=== PATIENT | female | born 1960 | race Caucasian/White ===

== ENCOUNTER → 2018-02-08 | Outpatient (REF) | payer OTHER | LOC: ZZSENDIN 12:00 | PROVIDERS: ATTEND Physician Assistant | DX: L30.8 Other specified dermatitis (principal) | CPT/HCPCS: 88305; 88344 ==

== ENCOUNTER → 2018-09-13 | Outpatient (CLI) | payer OTHER ==
--- NOTE | 2018-09-13 15:27 | RADIOLOGY IMAGING REPORT ---
FACILITY: [facility] PATIENT NAME: Denisse Allison : 1960 MR: [id number] V: [id number] EXAM DATE: ORDERING PHYSICIAN: TINY HENDRICKSON TECHNOLOGIST: Location: [facility] [place] Patient: Denisse Allison : 1960 Visit/Account:[id number] Date of Sevice: 09/13/2018 Exam type: HIP RIGHT History: Pain in right hip, injury in May Comparison: None. Findings: Two views of the right hip demonstrate severe joint space. Narrowing along the superior aspect of th e right hip joint. There are subchondral cystic erosions seen along the superior aspect of the right femoral head and along the superior margin of the acetabulum. No evidence of acute fracture or disl ocation. IMPRESSION: 1. Extensive degenerative changes of the right hip joint as described Report Dictated By: Cass Escalante MD at 09/13/2018 3:22 PM Report E-Signed By: Cass Escalante MD at 09/13/2018 3:23 PM WSN:[email or web address]
== END ==
LOC: RAD 12:02
PROVIDERS: ATTEND Chiropractor
DX: M25.551 Pain in right hip (principal)